=== PATIENT | male | born 1980 | race Two or more races ===

== ENCOUNTER 2016-12-15 02:12 | Emergency (ER) | payer MEDICAID, OTHER ==
[~2016-12-15] VITALS: Ht 180.3 cm; Wt 99.8 kg
--- NOTE | 2016-12-15 04:03 | NUR ---
Patient discharged to home in stable conditon. Written and verbal after care instructions given. Patient verbalizes understanding of instructions.
== END 2016-12-15 04:05 | disposition home or self-care (01) ==
LOC: ER 02:18
DX: S63.619A Unspecified sprain of unspecified finger, initial encounter (principal); S93.401A Sprain of unspecified ligament of right ankle, initial encounter; X50.9XXA Other and unspecified overexertion or strenuous movements or postures, initial encounter; Y93.89 Activity, other specified; Y92.9 Unspecified place or not applicable; Y99.9 Unspecified external cause status
CPT/HCPCS: 73130; 73610; 99284; A4663

== ENCOUNTER 2023-11-08 15:23 | Emergency (ER) | payer OTHER ==
[~2023-11-08] VITALS: Ht 177.8 cm; Wt 90.7 kg
[~2023-11-08 15:23] MED LIST: HYDR-3980 PO; ONDA4TAB5 PO
[2023-11-08 15:42] VITALS: O2SAT 98
[2023-11-08] MEDS ORDERED: MUPI22OI2 TP (16:32)
[2023-11-08] MEDS ORDERED: CEPH500C2 PO (16:32)
[2023-11-08] MEDS ORDERED: SULF1TAB48 PO (16:32)
[2023-11-08] MEDS ORDERED: CEphaleXIN 500 MG CAPSULE ONE (16:42)
[2023-11-08] MEDS ORDERED: SULFAMETH/TRIMETH 800/160 MG TABLET ONE (16:42)
[2023-11-08] MEDS ORDERED: NEOMY/BACITRA/POLYMYXIN B OINT UD PACKET TP ONE (16:42)
[2023-11-08] MEDS: NEOMY/BACITRA/POLYMYXIN B OINT UD PACKET TP ONE (16:45)
[2023-11-08] MEDS: CEphaleXIN 500 MG CAPSULE PO ONE (16:45)
[2023-11-08] MEDS: SULFAMETH/TRIMETH 800/160 MG TABLET PO ONE (16:45)
== END 2023-11-08 16:48 | disposition home or self-care (01) ==
LOC: ER 15:24
DX: H60.391 Other infective otitis externa, right ear (principal); E11.9 Type 2 diabetes mellitus without complications; Z79.899 Other long term (current) drug therapy; Z79.891 Long term (current) use of opiate analgesic
CPT/HCPCS: A4606; A4663